=== PATIENT | male | born 1955 | race Hispanic/Latino ===

== ENCOUNTER 2018-05-01 10:23 | Emergency (ER) | payer MEDICAID ==
--- NOTE | 2018-05-01 11:47 | Emergency Department Report ---
ED CPR HPI - General Chief Complaint: Cardiac Arrest/CPR Stated Complaint: CARDIAC ARREST Time Seen by Provider: 05/01/18 10:39 Source: family, EMS (verbal report received from EMS.ems notes not available at time of chart dictation) Mode of arrival: Stretcher Limitations: Altered Mental Status, Other (patient nonverbal, with combination airway tube in the oropharynx upon arrival) - History of Present Illness Initial Comments: This is a 63-year-old gentleman who was brought to the hospital by EMS as an out of hospital cardiac arrest. As per history subsequently obtained from the patient's sister, patient was found down, for uncertain duration of time, for uncertain mechanism, at around 9:45 in the morning. The patient's sister administered CPR, and contacted 911. EMS placed combination airway upon arrival, found the patient to be in fine ventricular fibrillation, shocked 1, gave 3 rounds of epinephrine, 1 round of sodium bicarbonate. Post-shock rhythm asystole. EMS verbally estimates that transport time 10-15 minutes. They reports no pulses in transit, upon arrival, the patient remains pulseless and asystolic. Pupils dilated and fixed, do not react to light. Patient continues to receive high quality CPR, and standard ACLS interventions. Unfortunately, pulses could not be obtained, and resuscitation efforts were terminated s econdary to prolonged downtime and medical futility. Subsequently, the patient's sister was informed. Complaint: found unresponsive Place: home Bystander CPR Performed: Yes AED Applied by Bystander/Case Managers: No Shock Advised: Yes Number of Shocks Delivered: 1 Initial Findings in the Field: no pulse, VTACH/VFIB ROSC in the Field: No Associated Injuries: No Treatments Prior to Arrival: other airway device, chest compressions, defribrillated shocks #, epinephrine mgs #, sodium bicarbonate - Related Data Home Medications Medication Instructions Recorded Confirmed Last Taken Clonidine 0.1 mg PO Q8HR 02/11/16 02/11/16 Unknown Clopidogrel 75 mg PO DAILY 02/11/16 02/11/16 Unknown Metoprolol Tartrate 50 mg PO BID 02/11/16 02/11/16 Unknown NIFEdipine 90 mg PO DAILY 02/11/16 02/11/16 Unknown Simvastatin 40 mg PO QHS 02/11/16 02/11/16 Unknown Vitamin D 50,000 unit PO QWEEK 02/11/16 02/11/16 02/06/16 14483 Previous Rx's Medication Instructions Recorded Last Taken Type Ciprofloxacin HCl [Ciprofloxacin 500 mg PO Q12H #10 tab 02/12/16 Unknown Rx TAB] HYDROcodone/APAP 10-325 10 mg PO Q8HR #30 02/12/16 Unknown Rx HYDROcodone/APAP 10-325 [[place] 1 each PO Q8H PRN #30 tablet 02/12/16 Unknown Rx 10-325 mg TAB] Lisinopril [Zestril TAB] 40 mg PO QDAY #30 tablet 02/12/16 Unknown Rx Zolpidem [Ambien] 5 mg PO QHS PRN #30 tablet 02/12/16 Unknown Rx metroNIDAZOLE [Flagyl] 500 mg PO Q8HR #15 tablet 02/12/16 Unknown Rx Allergies Allergy/AdvReac Type Severity Reaction Status Date / Time No Known Allergies Allergy Verified 11/12/15 19:22 ED Review of Systems ROS: Stated complaint: CARDIAC ARREST Other details as noted in HPI Comment: Unobtainable due to pts medical conditions ED Past Medical Hx - Past Medical History Hx Hypertension: Yes Hx CVA: Yes (TIA's) Hx Congestive Heart Failure: Yes Hx Diabetes: No Hx Headaches / Migraines: Yes Hx Kidney Stones: Yes Hx Psychiatric Treatment: Yes (depression) Hx Asthma: No Hx COPD: No Additional medical history: Pneumonia - Surgical History Additional Surgical History: spleenectomy - Social History Smoking Status: Never Smoker - Medications Home Medications: Home Medications Medication Instructions Recorded Confirmed Last Taken Type Clonidine 0.1 mg PO Q8HR 02/11/16 02/11/16 Unknown History Clopidogrel 75 mg PO DAILY 02/11/16 02/11/16 Unknown History Metoprolol Tartrate 50 mg PO BID 02/11/16 02/11/16 Unknown History NIFEdipine 90 mg PO DAILY 02/11/16 02/11/16 Unknown History Simvastatin 40 mg PO QHS 02/11/16 02/11/16 Unknown History Vitamin D 50,000 unit PO QWEEK 02/11/16 02/11/16 02/06/16 History [id number] Ciprofloxacin HCl [Ciprofloxacin 500 mg PO Q12H #10 tab 02/12/16 Unknown Rx TAB] HYDROcodone/APAP 10-325 10 mg PO Q8HR #30 02/12/16 Unknown Rx HYDROcodone/APAP 10-325 [[place] 1 each PO Q8H PRN #30 tablet 02/12/16 Unknown Rx 10-325 mg TAB] Lisinopril [Zestril TAB] 40 mg PO QDAY #30 tablet 02/12/16 Unknown Rx Zolpidem [Ambien] 5 mg PO QHS PRN #30 tablet 02/12/16 Unknown Rx metroNIDAZOLE [Flagyl] 500 mg PO Q8HR #15 tablet 02/12/16 Unknown Rx ED Physical Exam - General Limitations: Other (intubated, nonverbal, GCS of 3) General appearance: obtunded - Eye Eye exam: Present: other (pupils fixed and dilated, do not react to light). Absent: normal appearance - ENT ENT exam: Present: normal external ear exam, other (combination tube and oropharynx) - Neck Neck exam: Present: normal inspection - Respiratory Respiratory exam: Absent: normal lung sounds bilaterally (no breath sounds unless [id number] ventilation applied) - Cardiovascular Cardiovascular Exam: Present: other (patient is pulseless). Absent: regular rate, normal rhythm, bradycardia, tachycardia, irregular rhythm - GI/Abdominal GI/Abdominal exam: Present: distended - exam: Present: normal inspection External exam: Present: normal external exam - Extremities Exam Extremities exam: Present: normal inspection, other (no pulses are palpated) - Back Exam Back exam: Present: normal inspection - Neurological Exam Neurological exam: Present: other (patient is nonverbal) - Skin Skin exam: Present: dry ED Medical Decision Making - Medical Decision Making Differential diagnosis, including but not limited to: Acute coronary syndrome, hemorrhagic stroke, sepsis, pulmonary embolus, electrolyte derangement Critical care attestation.: If time is entered above; I have spent that time in minutes in the direct care of this critically ill patient, excluding procedure time. ED Disposition Clinical Impression: Cardiac arrest Disposition: DC-20 Is pt being admited?: No Does the pt Need Aspirin: No Condition: Undetermined Referrals: PRIMARY CARE,MD [Primary Care Provider] - 3-5 Days
== END 2018-05-01 14:23 ==
LOC: ED 10:23
CPT/HCPCS: 92950